=== PATIENT | male | born 1985 | race Caucasian/White ===

== ENCOUNTER 2016-10-05 10:50 | Emergency (ER) | payer BC ==
[2016-10-05] MEDS ORDERED: methylPREDNISolone SOD SUCC* 40 MG/ML VIAL IV ONE (11:24)
[2016-10-05] MEDS ORDERED: Aspirin Low Dose CHEW TAB* 81 MG PO ONE (11:24)
[2016-10-05] MEDS ORDERED: Albuterol/Ipratropium NEB.SOL* Albuterol 2.5 MG/Ipratropium 0.5 MG 3 ML INH ONE (11:24)
--- NOTE | 2016-10-05 11:29 | ED ---
Respiratory - HPI Summary HPI Summary: Patient is a 31yo M with a history of chronic asthma who presents to ED with CC of SOB, cough without production and midsternal chest pain x 1 week. Denies smoking history. Patient was seen in yesterday and given prednisone 40mg daily. He states they did not perform a chest xray. He notes to worsening SOB with associated chest tightness despite the prednisone. He endorses dyspnea on exertion, but denies orthopnea. Surgical Hx positive for cholecystectomy 3 weeks ago. He states he remained ambulatory after the surgery and had no use of a spirometer post-op. He denied SOB immediately after surgery and the days following. Denies sick contacts. Denies hx of PNA. He has not taken anything for the discomfort and has been using his albuterol inhaler more frequently, but it does not alleviate the symptoms. He is also on daily advair. Last nebulizer treatment at home was about 1 hour ago and he states he is still feeling SOB. He is concerned over the midsternal chest pain radiating to the L shoulder since yesterday. Family hx includes HTN and MN, but personal history only positive for asthma and allergies. - History of Current Complaint Chief Complaint: EDShortnessOfBreath Stated Complaint: CHEST PAIN,SHORT OF BREATH, LEFT SHOULDER PAIN, Time Seen by Provider: 10/05/16 11:06 Hx Obtained From: Patient Onset/Duration: Gradual Onset Timing: Constant Initial Severity: Moderate Current Severity: Moderate Pain Intensity: 2 Character: Cough (Nonproductive), Dyspnea at Rest Sputum Amount: None Aggravating Factor(s): URI, Allergens, Exertion, Deep Breaths Alleviating Factor(s): Neb. Bronchodilators (Frequency Of Use), Steriods, Rest Associated Signs and Symptoms: SOB, Chest Pain, Wheezing, Chest Pain with Cough , Dyspnea - Risk Factors Status Asthmaticus Risk Factors: Recent Steroids Pulmonary Embolism Risk Factors: Negative Cardiac Risk Factors: Negative Pseudomonas Risk Factors: Chronic Lung Disease Tuberculosis Risk Factors: Negative - Allergy/Home Medications Allergies/Adverse Reactions: Allergies Allergy/AdvReac Type Severity Reaction Status Date / Time No Known Allergies Allergy Verified 10/05/16 11:26 PMH/Surg Hx/FS Hx/Imm Hx Previously Healthy: Yes - Immunization History Hx Pertussis Vaccination: No Immunizations Up to Date: No Infectious Disease History: No Infectious Disease History: Denies: Traveled Outside the [place] in Last 30 Days - Social History Occupation: Employed Full-time Lives: With Family Alcohol Use: Rare Hx Substance Use: No Substance Use Type: Reports: None Hx Tobacco Use: No Smoking Status (MU): Never Smoked Tobacco Do You Chew or Dip Tobacco: No Have You Chewed or Dipped Tobacco in the LAST YEAR: No Review of Systems Constitutional: Negative Eyes: Negative Positive: Chest Pain Positive: Shortness Of Breath, Cough Gastrointestinal: Negative Positive: no symptoms reported, see HPI Positive: Arthralgia - left shoulder pain Neurological: Negative Psychological: Normal All Other Systems Reviewed And Are Negative: Yes Physical Exam Triage Information Reviewed: Yes Vital Signs On Initial Exam: Initial Vitals Temp Pulse Resp BP Pulse Ox 98.7 F 100 20 156/85 98 10/05/16 10:59 10/05/16 10:59 10/05/16 10:59 10/05/16 10:59 10/05/16 10:59 Completion Of Physical Exam Limited Due To: Dementia Appearance: Positive: Well-Appearing, Well-Nourished Skin: Positive: Warm, Skin Color Reflects Adequate Perfusion Head/Face: Positive: Normal Head/Face Inspection Eyes: Positive: EOMI, YANET, Conjunctiva Clear Neck: Positive: Supple, No Lymphadenopathy Respiratory/Lung Sounds: Positive: Rhonchi - throughout LLL and RLL base, Wheezes - throughout lung bases, Fatigue Cardiovascular: Positive: Normal, RRR Musculoskeletal: Positive: Normal, Strength/ROM Intact Neurological: Positive: Normal, Sensory/Motor Intact, Alert, Oriented to Person Place, Time Psychiatric: Positive: Normal AVPU Assessment: Alert - Cullen Coma Scale Best Eye Response: 4 - Spontaneous Best Motor Response: 6 - Obeys Commands Best Verbal Response: 5 - Oriented Coma Scale Total: 15 Diagnostics - Vital Signs Vital Signs Temp Pulse Resp BP Pulse Ox 10/05/16 11:23 103 23 95 10/05/16 11:03 98.6 F 80 16 156/85 100 10/05/16 10:59 98.7 F 100 20 156/85 98 - Laboratory Result Diagrams: 10/05/16 11:15 10/05/16 11:15 Lab Statement: Any lab studies that have been ordered have been reviewed, and results considered in the medical decision making process. Disposition - Course Course Of Treatment: Chest xray:IMPRESSION: Consolidation at the LEFT lung base is concerning for pneumonia in the. appropriate clinical context. Potential additional small region of consolidation at the. RIGHT upper lobe. Correlate with clinical assessment. Follow-up radiographs after therapy. suggested to assess for resolution. Respiratory therapy called for breathing treatment. Patient improved immediately following. Trops negative. D-Dimer negative. < 200. EKG negative for acute findings. Read as NSR. Patient recently had surgery 3 weeks ago and provider concerned for PE. D-Dimer for moderate risk rule out. Patient has chronic asthma which has worsened over the past 2 weeks. Will treat for PNA with levofloxacin d/t recent hospital stay and chronic lung disease. Added 2 days prednisone at 50mg today and tomorrow and to resume 40mg on thursday for 4 days. Nebulizer treatments ordered for patient and note for work for 3 days off given. Patient OK to discharge and will return if symptoms become worse. - Differential Dx - Cardiopulmonary Differential Diagnoses - Cardiopulmonary: Chest Wall Pain, Lower Resp Infection , Pulmonary Embolism, Other - PNA - Diagnoses Provider Diagnoses: Pneumonia Discharge - Discharge Plan Condition: Stable Disposition: HOME Prescriptions: Albuterol/Ipratropium NEB.TATIANA* [Duoneb (Albuterol 2.5 MG/Ipratropium 0.5 MG)] 1 neb INH Q4H #30 neb.soln MDD 6 Levofloxacin TAB* [Levaquin 750 MG TAB*] 750 mg PO DAILY #5 tab predniSONE TAB* [Deltasone TAB*] 50 mg PO DAILY #2 tab MDD 1 Patient Education Materials: Bacterial Pneumonia (ED) Forms: *Work Release Referrals: No Primary Care Phys,NOPCP [Primary Care Provider] - Additional Instructions: Duo-Neb as needed for shortness of breath Take 50mg prednisone x 2 days beginning on THURSDAY Take 40mg prednisone x 4 days beginning on THURSDAY Remain out of work until . Levofloxacin daily for 5 days. Recommended repeat chest xray next week after completion of antibiotics to assure pneumonia has passed. Tylenol or ibuprofen for any discomfort Moist heat to left shoulder
[2016-10-05 11:41] LABS: Hematocrit 46 % (42-52); Hemoglobin 15.3 g/dl (14.0-18.0); Mean Corpuscular HGB Conc 33 g/dl (31-36); Mean Corpuscular Hemoglobin 30 pg (27-31); Mean Corpuscular Volume 90 fL (80-94); Mean Platelet Volume 9 um3 (7.4-10.4); Red Blood Count 5.11 10^6/ul (4.0-5.4); Red Cell Distribution Width 13 % (10.5-15); White Blood Count 10.9 10^3/ul (3.5-10.8)
[2016-10-05 11:53] LABS: Albumin 4.5 g/dL (3.2-5.2); BUN/Creatinine Ratio 12.1 (8-20); Calcium 9.6 mg/dL (8.6-10.3); EGFR African American 114.9 (>60); EGFR Non-African American 89.4 (>60); Globulin 2.8 g/dL (2-4); Magnesium 1.9 mg/dL (1.9-2.7); Potassium 3.8 mmol/L (3.5-5.0); Total Bilirubin 0.4 mg/dL (0.2-1.0); Total Protein 7.3 g/dL (6.4-8.9)
--- NOTE | 2016-10-05 12:00 | RAD ---
Indication: Wheezing, coarse lung sounds. Shortness of breath, chest pain. History of asthma. Comparison: None. Technique: Upright AP 1135 hours Report: Mild prominence of interstitial markings. Mild alveolar consolidation at the LEFT lung base and at the anterior segment of the RIGHT upper lobe approximating the minor fissure. Grossly clear pleural spaces. Negative for pneumothorax. The heart, pulmonary vasculature, and mediastinal contours are unremarkable. IMPRESSION: Consolidation at the LEFT lung base is concerning for pneumonia in the appropriate clinical context. Potential additional small region of consolidation at the RIGHT upper lobe. Correlate with clinical assessment. Follow-up radiographs after therapy suggested to assess for resolution.
[2016-10-05 13:07] VITALS: BP 152/89
== END 2016-10-05 13:06 | disposition home or self-care (01) ==
LOC: ED 10:50
DX: J18.9 Pneumonia, unspecified organism (principal); R07.9 Chest pain, unspecified; R06.02 Shortness of breath; M25.512 Pain in left shoulder; R05 Cough; R06.00 Dyspnea, unspecified
CPT/HCPCS: 36415; 71010; 80053; 82550; 82553; 83605; 83735; 83874; 83880; 84484; 85025; 85379; 85610; 85730; 93005; 94640; 94760; 96374; 99282; A9270-GY; J2920

== ENCOUNTER → 2016-10-08 16:52 | Emergency (ER) | payer BC ==
[~2016-10-08 16:52] MED LIST: Albuterol/Ipratropium NEB.SOL* Albuterol 2.5 MG/Ipratropium 0.5 MG 3 ML INH ONE; Iohexol 350* (CONTRAST) 500 ML MDV IV ONE; Levofloxacin TAB* 250 MG PO ONE; NS 0.9% 1000 ML* 1,000 ML IV ONE; Nystatin SUSPENSION* 100000 UNITS/ML 5 ML UDC PO ONE; methylPREDNISolone SOD SUCC* 125 MG 2 ML VIAL IV ONE; predniSONE TAB* 50 MG PO ONE
[2016-10-08 18:10] LABS: Hematocrit 47 % (42-52); Hemoglobin 15.5 g/dl (14.0-18.0); Mean Corpuscular HGB Conc 33 g/dl (31-36); Mean Corpuscular Hemoglobin 30 pg (27-31); Mean Corpuscular Volume 90 fL (80-94); Mean Platelet Volume 9 um3 (7.4-10.4); Red Blood Count 5.18 10^6/ul (4.0-5.4); Red Cell Distribution Width 13 % (10.5-15); White Blood Count 9.1 10^3/ul (3.5-10.8)
[2016-10-08 18:29] LABS: ALT 121 U/L (7-52); Albumin 4.2 g/dL (3.2-5.2); Alkaline Phosphatase 66 U/L (34-104); BUN/Creatinine Ratio 13.9 (8-20); Blood Urea Nitrogen 14 mg/dL (6-24); CO2 Carbon Dioxide 24 mmol/L (22-32); Calcium 9.4 mg/dL (8.6-10.3); Chloride 102 mmol/L (101-111); EGFR African American 112.3 (>60); EGFR Non-African American 87.3 (>60); Glucose 163 mg/dL (70-100); Sodium 132 mmol/L (133-145); Total Protein 7.2 g/dL (6.4-8.9)
[2016-10-08 18:32] LABS: Troponin I 0.01 ng/mL (<0.04)
--- NOTE | 2016-10-08 19:32 | RAD ---
INDICATION: Shortness of breath. COMPARISON: Comparison is made with a prior chest x-ray study from October 05, 2016. TECHNIQUE: A CT angiogram of the chest was performed with intravenous following intravenous injection of 170 ml of Omnipaque 350 nonionic contrast. Contiguous axial sections were obtained from the lung apices through the lung bases. Images were reconstructed in the coronal and sagittal planes. The patient was scanned twice due to suboptimal opacification of the pulmonary arteries on the first data set. FINDINGS: The exam is slightly limited due to motion artifact. No intraluminal filling defect or pulmonary embolism is seen. The heart is within normal limits in size. No pericardial effusion is present. The thoracic aorta is normal in caliber and demonstrates homogeneous contrast opacification. No significant enlarged mediastinal or hilar lymph nodes are seen. There is mild increased soft tissue density in the anterior mediastinum most consistent with residual thymus tissue. There is a small linear infiltrate present in the right lower lobe suggestive of atelectasis and a curvilinear patchy infiltrate in the left lower lobe. There are small bilateral pleural effusions present. Images of the upper abdomen demonstrate mild hepatomegaly and hepatic steatosis. The patient is status post cholecystectomy. No significant focal osseous abnormality is seen. IMPRESSION: 1. SLIGHTLY LIMITED EXAM, NO EVIDENCE FOR PULMONARY EMBOLISM. 2. SMALL LEFT LOWER LOBE INFILTRATE, RIGHT LOWER LOBE ATELECTASIS AND SMALL BILATERAL PLEURAL EFFUSIONS. 3. HEPATOMEGALY AND HEPATIC STEATOSIS.
[2016-10-09 00:32] VITALS: BP 110/64
--- NOTE | 2016-10-09 02:23 | CONS ---
CONSULTATION REPORT: DATE OF CONSULTATION: 10/08/16 - EMERGENCY DEPT TIME OF EVALUATION: 2330 PRIMARY CARE PHYSICIAN: Lucina Wong NP CHIEF COMPLAINT: Cough and shortness of breath. HISTORY OF PRESENT ILLNESS: This is a 31-year-old male with a past medical history of asthma, who presented to the emergency room from his primary care's office for concern of not getting better from his pneumonia and asthma exacerbation. The patient states he had cholecystectomy done on 09/09/16. For the past week to week and a half, he has beginning with seasonal allergies. He has been taking Zyrtec for that and then he developed coughing and wheezing. He was seen at Urgent Care on the and then in the emergency room on the here and they started him on Levaquin and a steroid taper. It appears he only got 2 days of prednisone for the past 2 days. He has been using his albuterol nebulizer and DuoNebs and his inhaler at home. He does not have a chamber though. He called his primary because he was concerned that he was not getting worse, but he was not getting better and they recommended he go to the emergency room for further evaluation. He states he has some cough and shortness of breath on exertion. No chest pain, no shortness of breath at rest. In the emergency room, the patient had labs, imaging and vitals are unremarkable. They ambulated him and he did not become hypoxic with ambulation and was referred to the hospitalist service for evaluation for admission. In the emergency room, the patient was given a liter of normal saline, Solu-Medrol 125, Levaquin 750 mg and a DuoNeb and states he feels much better after the DuoNeb. PAST MEDICAL HISTORY: 1. Asthma. 2. Allergies. 3. Recent cholecystectomy, done on 09/09/16. MEDICATIONS: 1. Advair, unclear of the dose. 2. Albuterol nebulizers and albuterol inhaler, as mentioned no spacer with it and DuoNeb nebulizers as well. 3. Zyrtec 10 mg daily. 4. Bentyl 10 mg twice a day. 5. Omeprazole 20 mg daily. 6. Adderall XR 10 mg daily. 7. Flonase 1 spray each naris daily. 8. Levaquin 750 mg daily. 9. Just finished 2 days of prednisone. ALLERGIES: No known drug allergies. FAMILY HISTORY: His father has asthma. SOCIAL HISTORY: The patient lives at home with his . No tobacco or illicit drug use. Occasional alcohol use. He works as a motorboat mechanic inboard/outboard in a garage. Code status is full code. REVIEW OF SYSTEMS: As mentioned in the HPI. PHYSICAL EXAM: Vitals: Temp 99.9, pulse rate 96, respiratory rate 16, oxygen saturation 97% on room air, blood pressure 137/75. General: No acute distress , resting comfortably with his at the bedside. HEENT: Neck supple. No lymphadenopathy. Pupils equal and reactive. Anicteric. Head normocephalic. Oropharynx: Mucous membranes moist. No erythema or exudate. Cardiac: Regular rate and rhythm. Soft systolic murmur heard. Respiratory: Rhonchorous breath sounds bilaterally with expiratory wheezing. No increased work of breathing. No tachypnea. Abdomen: Soft, nontender, nondistended. Extremities: No clubbing, cyanosis or edema. Neurological: Alert and oriented x3. No focal neurologic deficits. DIAGNOSTIC STUDIES/LAB DATA: Laboratory Data: White count 9.1, hemoglobin 15.5 , hematocrit 47, platelets 249. INR is 0.84. Sodium 132, chloride 102, bicarb 24, BUN 14, creatinine 1.01, glucose 163, lactic acid 2.3. Radiographic Data: Chest CTA, slightly limited exam. No evidence for pulmonary embolism. Small left lower lobe infiltrate, right lower lobe atelectasis and small bilateral pleural effusions. hepatic steatosis. EKG shows normal sinus rhythm. ASSESSMENT: This is a 31-year-old male with past medical history of asthma, who presented to the emergency room from his primary care's office for persistent symptoms of his asthma exacerbation. Asthma exacerbation with community-acquired pneumonia. Assessment: The patient has been on 2 days of steroids and a 5-day course for Levaquin. He does feel better clinically. He does have rhonchi and wheezing on exam, but his vitals remained normal and he ambulated without any change in his oxygen saturation with a slight increase in his heart rate. His labs are unremarkable as the imaging showing an infiltrate with some atelectasis. I discussed continuing his albuterol nebulizer and using the inhaler with the chamber, which will be provided to him and to continue doing deep breathing, that he needs a longer prednisone taper rather than just 2 days and to do 7 days of Levaquin for a full course of pneumonia and to follow up with his primary care physician. We also recommended a course of nystatin for his oral thrush and to rinse out his mouth after his Advair treatment. The patient feels reassured as mentioned. Clinically, he states he has not been getting worse, just he feels he has plateaued. Recommend that he may have a longer recovery in the setting of a recent cholecystectomy with deconditioning. The patient is agreeable to this. I made my recommendations to Dr. Ford, who is also agreeable to this as well. The patient to return if his shortness of breath gets worse or any chest pain. PATIENT TIME: Greater than 90 minutes were spent doing the consultation, more than half the time spent in direct patient contact. CC: Lucina Wong NP* [id number]/CPS #: [id number] GABI
--- NOTE | 2016-10-09 11:00 | ED ---
Randolph Olivas Erika, scribed for Francois Ford MD on 10/08/16 at 1901 . Respiratory - HPI Summary HPI Summary: Patient is a 31-year-old male presenting to the ED with a CC of SOB. Patient reports that for the past week, he has had chest pain described as like someone was sitting on his chest. He states chest pain is diffuse, and is aggravated by breathing. He also reports cough and SOB, which is aggravated by exertion. Patient states SOB is not alleviated by rest. He states on 10/04/2016, he went to [facility] where he had no tests done, and was prescribed prednisone - pt is still taking the prednisone. He states on 10/05, he came to the ED, and was diagnosed with pneumonia after EKG, CXR, and blood work, and was started on Levaquin. Symptoms have not improved since discharge, so patient followed up with his PCP today, who recommended he come to the ED. Pt denies pedal edema. He states he has been using duoneb treatments q4h since he was diagnosed with pneumonia, but has not had one today since 12:00. Patient also notes he had a cholecystectomy 4 weeks ago. - History of Current Complaint Chief Complaint: EDShortnessOfBreath Stated Complaint: DX PNEUMONIA-SENT BY PCP Time Seen by Provider: 10/08/16 17:25 Hx Obtained From: Patient Onset/Duration: Gradual Onset, Lasting Days, Still Present Timing: Constant Initial Severity: Mild Current Severity: Moderate Pain Intensity: 6 Aggravating Factor(s): Exertion, Deep Breaths Alleviating Factor(s): Neb. Bronchodilators (Frequency Of Use) - q4h Associated Signs and Symptoms: SOB, Chest Pain - Allergy/Home Medications Allergies/Adverse Reactions: Allergies Allergy/AdvReac Type Severity Reaction Status Date / Time No Known Allergies Allergy Verified 10/05/16 11:26 Home Medications: Home Medications Amphetamine/Dextroamph ER(NF) [Adderal XR (NF)] 10 mg PO DAILY 10/08/16 [ History Confirmed 10/08/16] Cetirizine* [ZyrTEC 10 MG TAB*] 10 mg PO DAILY 10/08/16 [History Confirmed 10/08] Dicyclomine CAP* [Bentyl CAP*] 10 mg PO BID 10/08/16 [History Confirmed 10/08/16 ] Fluticasone NASAL SPRAY 50MCG* [Flonase NASAL SPRAY 50MCG*] 1 spray BOTH NARES DAILY 10/08/16 [History Confirmed 10/08/16] Omeprazole CAP* [Prilosec CAP* 20 MG] 20 mg PO DAILY 10/08/16 [History Confirmed 10/08/16] PMH/Surg Hx/FS Hx/Imm Hx Respiratory History: Reports: Hx Asthma, Hx Pneumonia Infectious Disease History: Denies: Traveled Outside the [place] in Last 30 Days - Family History Known Family History: Positive: Cardiac Disease, Hypertension - Social History Alcohol Use: Rare Hx Substance Use: No Substance Use Type: Reports: None Hx Tobacco Use: No Smoking Status (MU): Never Smoked Tobacco Review of Systems Positive: Chest Pain Positive: Shortness Of Breath, Cough Negative: Edema All Other Systems Reviewed And Are Negative: Yes Physical Exam Triage Information Reviewed: Yes Vital Signs On Initial Exam: Initial Vitals Temp Pulse Resp BP Pulse Ox 97.7 F 102 20 178/93 98 10/08/16 16:54 10/08/16 16:54 10/08/16 16:54 10/08/16 16:54 10/08/16 16:54 Vital Signs Reviewed: Yes Appearance: Positive: Well-Appearing, No Pain Distress Skin: Positive: Warm, Skin Color Reflects Adequate Perfusion, Dry Head/Face: Positive: Normal Head/Face Inspection Eyes: Positive: Normal ENT: Positive: Normal ENT inspection Neck: Positive: Supple, Nontender Respiratory/Lung Sounds: Positive: Breath Sounds Present, Wheezes - Expiratory Cardiovascular: Positive: Tachycardia - at 102 bpm on triage Abdomen Description: Positive: Nontender, Soft Bowel Sounds: Positive: Present Musculoskeletal: Positive: Normal Neurological: Positive: Normal Psychiatric: Positive: Affect/Mood Appropriate Diagnostics - Vital Signs Vital Signs Temp Pulse Resp BP Pulse Ox 10/08/16 16:54 97.7 F 102 20 178/93 98 - Laboratory Lab Results: Lab Results 10/08/16 10/08/16 10/08/16 Range/Units 17:50 17:50 17:50 WBC 9.1 (3.5-10.8) 10^3/ul RBC 5.18 (4.0-5.4) 10^6/ul Hgb 15.5 (14.0-18.0) g/dl Hct 47 (42-52) % MCV 90 (80-94) fL MCH 30 (27-31) pg MCHC 33 (31-36) g/dl RDW 13 (10.5-15) % Plt Count 249 (150-450) 10^3/ul MPV 9 (7.4-10.4) um3 Neut % (Auto) 79.8 (38-83) % Lymph % (Auto) 16.1 L (25-47) % [place] % (Auto) 3.7 (1-9) % Eos % (Auto) 0.1 (0-6) % Baso % (Auto) 0.3 (0-2) % Absolute Neuts (auto) 7.2 (1.5-7.7) 10^3/ul Absolute Lymphs (auto) 1.5 (1.0-4.8) 10^3/ul Absolute Monos (auto) 0.3 (0-0.8) 10^3/ul Absolute Eos (auto) 0 (0-0.6) 10^3/ul Absolute Basos (auto) 0 (0-0.2) 10^3/ul Absolute Nucleated RBC 0.01 10^3/ul Nucleated RBC % 0.1 INR (Anticoag Therapy) 0.84 L (0.89-1.11) Sodium 132 L (133-145) mmol/L Potassium TNP Chloride 102 (101-111) mmol/L Carbon Dioxide 24 (22-32) mmol/L Anion Gap TNP BUN 14 (6-24) mg/dL Creatinine 1.01 (0.67-1.17) mg/dL Est GFR ( Amer) 112.3 (>60) Est GFR (Non-Af Amer) 87.3 (>60) BUN/Creatinine Ratio 13.9 (8-20) Glucose 163 H (70-100) mg/dL Lactic Acid (0.5-2.0) mmol/L Calcium 9.4 (8.6-10.3) mg/dL Total Bilirubin 0.30 (0.2-1.0) mg/dL AST TNP ALT 121 H (7-52) U/L Alkaline Phosphatase 66 (34-104) U/L Troponin I 0.01 (<0.04) ng/mL Total Protein 7.2 (6.4-8.9) g/dL Albumin 4.2 (3.2-5.2) g/dL Globulin 3.0 (2-4) g/dL Albumin/Globulin Ratio 1.4 (1-3) 10/08/16 Range/Units 17:50 WBC (3.5-10.8) 10^3/ul RBC (4.0-5.4) 10^6/ul Hgb (14.0-18.0) g/dl Hct (42-52) % MCV (80-94) fL MCH (27-31) pg MCHC (31-36) g/dl RDW (10.5-15) % Plt Count (150-450) 10^3/ul MPV (7.4-10.4) um3 Neut % (Auto) (38-83) % Lymph % (Auto) (25-47) % [place] % (Auto) (1-9) % Eos % (Auto) (0-6) % Baso % (Auto) (0-2) % Absolute Neuts (auto) (1.5-7.7) 10^3/ul Absolute Lymphs (auto) (1.0-4.8) 10^3/ul Absolute Monos (auto) (0-0.8) 10^3/ul Absolute Eos (auto) (0-0.6) 10^3/ul Absolute Basos (auto) (0-0.2) 10^3/ul Absolute Nucleated RBC 10^3/ul Nucleated RBC % INR (Anticoag Therapy) (0.89-1.11) Sodium (133-145) mmol/L Potassium Chloride (101-111) mmol/L Carbon Dioxide (22-32) mmol/L Anion Gap BUN (6-24) mg/dL Creatinine (0.67-1.17) mg/dL Est GFR ( Amer) (>60) Est GFR (Non-Af Amer) (>60) BUN/Creatinine Ratio (8-20) Glucose (70-100) mg/dL Lactic Acid 2.3 H* (0.5-2.0) mmol/L Calcium (8.6-10.3) mg/dL Total Bilirubin (0.2-1.0) mg/dL AST ALT (7-52) U/L Alkaline Phosphatase (34-104) U/L Troponin I (<0.04) ng/mL Total Protein (6.4-8.9) g/dL Albumin (3.2-5.2) g/dL Globulin (2-4) g/dL Albumin/Globulin Ratio (1-3) Result Diagrams: 10/08/16 17:50 10/08/16 17:50 Lab Statement: Any lab studies that have been ordered have been reviewed, and results considered in the medical decision making process. - CT CTA Chest CT Interpretation Completed By: Radiologist - IMPRESSION: 1. SLIGHTLY LIMITED EXAM, NO EVIDENCE FOR PULMONARY EMBOLISM. 2. SMALL LEFT LOWER LOBE INFILTRATE, RIGHT LOWER LOBE ATELECTASIS AND SMALL BILATERAL PLEURAL EFFUSIONS. 3. HEPATOMEGALY AND HEPATIC STEATOSIS. - EKG 18:33 Cardiac Rate: NL - at 91 bpm EKG Rhythm: Sinus Rhythm Re-Evaluation - Re-Evaluation First Eval Re-Evaluation Time: 19:45 Change: Unchanged Comment: Patient is about to receive duoneb. Feels unchanged right now. Second Eval Re-Evaluation Time: 21:41 Change: Unchanged Comment: Patient reports he still does not feel improved. Will road test Third Eval Re-Evaluation Time: 22:10 Change: Unchanged Comment: Patient's HR increased to [address] test[address] Discussed admission vs. discharge with patient. Will discuss with hospitalist. Disposition - Course Course Of Treatment: I am concerned that Mr. Licona is failing outpatient treatment for his pneumonia and asthma and have asked the hospitalist to consult on him. Dr. Sparks consulted on him and felt that he was stable and could be D/C'd with the addition of more time taking both the antibiotic and the steroid. I think she is right and he agrees to return if worsening. - Diagnoses Provider Diagnoses: Pneumonia, Asthma exacerbation - Physician Notifications Discussed Care Of Patient With: Dr. Sparks (hospitalist) at 22:11 - will see patient. Discharge - Discharge Plan Condition: Stable Disposition: HOME Patient Education Materials: Asthma (ED), Pneumonia (ED) Referrals: Lucina Wong [Primary Care Provider] - The documentation as recorded by the Randolph gibson Erika accurately reflects the service I personally performed and the decisions made by me, Francois Ford MD.
== END | disposition home or self-care (01) ==
LOC: ED 16:52
DX: J45.901 Unspecified asthma with (acute) exacerbation (principal); J18.9 Pneumonia, unspecified organism; R07.9 Chest pain, unspecified; R06.02 Shortness of breath; Z79.899 Other long term (current) drug therapy; R16.0 Hepatomegaly, not elsewhere classified; K76.0 Fatty (change of) liver, not elsewhere classified
CPT/HCPCS: 36415; 71275; 80053; 83605; 84484; 85025; 85610; 87040; 93005; 94640; 96361; 96374; 99285; A9270-GY; J2930; J7512; Q9967

== ENCOUNTER 2017-10-05 03:15 | Emergency (ER) | payer BC ==
[2017-10-05] MEDS ORDERED: Ibuprofen TAB* 800 MG PO ONE (03:39)
[2017-10-05] MEDS ORDERED: Ibuprofen TAB* 600 MG ONE (03:40)
[2017-10-05 03:59] LABS: ABS Basophils 0 10^3/ul (0-0.2); ABS Eosinophils 0 10^3/ul (0-0.6); ABS Lymphocytes 1.4 10^3/ul (1.0-4.8); ABS Monocytes 0.7 10^3/ul (0-0.8); ABS Nucleated RBC 0 10^3/ul; Eosinophil % 0.3 % (0-6); Hematocrit 43 % (42-52); Hemoglobin 14.9 g/dl (14.0-18.0); Lymphocyte % 13.5 % (25-47); Mean Corpuscular HGB Conc 35 g/dl (31-36); Mean Corpuscular Hemoglobin 31 pg (27-31); Mean Corpuscular Volume 88 fL (80-94); Nucleated Red Blood Cells % 0; Platelet Count 211 10^3/ul (150-450); Red Blood Count 4.85 10^6/ul (4.0-5.4); Red Cell Distribution Width 13 % (10.5-15); White Blood Count 10.1 10^3/ul (3.5-10.8)
[2017-10-05 04:08] LABS: INR 0.88 (0.77-1.02)
[2017-10-05 04:17] LABS: EGFR Non-African American 81.1 (>60)
[2017-10-05 05:14] VITALS: BP 138/84
--- NOTE | 2017-10-05 05:17 | ED ---
Blaine Olivas Gabriel, scribed for Gil Zhu on 10/05/17 at 0352 . HPI Chest Pain - HPI Summary HPI Summary: This patient is a 32 year old M presenting to [facility] accompanied by his partner with a chief complaint of CP that began at 1230 tonight. The patient rates the pain 6/10 in severity. Symptoms aggravated by movement and deep breaths. Patient reports SOB, left arm pain, dizziness, and hot flashes. - History of Current Complaint Chief Complaint: EDChestPainROMI Time Seen by Provider: 10/05/17 03:24 Hx Obtained From: Patient Onset/Duration: Still Present Time of Onset: 12:30 Pain Intensity: 6 - Allergy/Home Medications Allergies/Adverse Reactions: Allergies Allergy/AdvReac Type Severity Reaction Status Date / Time No Known Allergies Allergy Verified 10/05/17 03:22 PMH/Surg Hx/FS Hx/Imm Hx Respiratory History: Reports: Hx Asthma, Hx Pneumonia - Surgical History Surgery Procedure, Year, and Place: cholecystectomy 09/2016 Infectious Disease History: No Infectious Disease History: Denies: Traveled Outside the [place] in Last 30 Days - Family History Known Family History: Positive: Cardiac Disease, Hypertension - Social History Alcohol Use: Rare Hx Substance Use: No Substance Use Type: Reports: None Hx Tobacco Use: No Smoking Status (MU): Never Smoked Tobacco Review of Systems All Other Systems Reviewed And Are Negative: Yes Physical Exam - Summary Physical Exam Summary: Appearance: Well appearing, no pain distress Skin: warm, dry, reflects adequate perfusion Head/face: normal Eyes: EOMI, YANET ENT: normal Neck: supple, non-tender Chest: TTP over left chest, reproducible CP Respiratory: CTA, breath sounds present Cardiovascular: RRR, pulses symmetrical Abdomen: non-tender, soft Bowel: present Musculoskeletal: normal, strength/ROM intact Neuro: normal, sensory motor intact, A&Ox3 Triage Information Reviewed: Yes Vital Signs On Initial Exam: Initial Vitals Temp Pulse Resp BP Pulse Ox 96.9 F 106 18 161/92 96 10/05/17 03:20 10/05/17 03:20 10/05/17 03:20 10/05/17 03:20 10/05/17 03:20 Vital Signs Reviewed: Yes Diagnostics - Vital Signs Vital Signs Temp Pulse Resp BP Pulse Ox 10/05/17 03:20 96.9 F 106 18 161/92 96 - Laboratory Lab Results: Lab Results 10/05/17 10/05/17 10/05/17 Range/Units 03:45 03:45 03:45 WBC 10.1 (3.5-10.8) 10^3/ul RBC 4.85 (4.0-5.4) 10^6/ul Hgb 14.9 (14.0-18.0) g/dl Hct 43 (42-52) % MCV 88 (80-94) fL MCH 31 (27-31) pg MCHC 35 (31-36) g/dl RDW 13 (10.5-15) % Plt Count 211 (150-450) 10^3/ul MPV 9.0 (7.4-10.4) um3 Neut % (Auto) 78.6 (38-83) % Lymph % (Auto) 13.5 L (25-47) % Archuleta % (Auto) 7.3 H (0-7) % Eos % (Auto) 0.3 (0-6) % Baso % (Auto) 0.3 (0-2) % Absolute Neuts (auto) 8.0 H (1.5-7.7) 10^3/ul Absolute Lymphs (auto) 1.4 (1.0-4.8) 10^3/ul Absolute Monos (auto) 0.7 (0-0.8) 10^3/ul Absolute Eos (auto) 0 (0-0.6) 10^3/ul Absolute Basos (auto) 0 (0-0.2) 10^3/ul Absolute Nucleated RBC 0 10^3/ul Nucleated RBC % 0 INR (Anticoag Therapy) 0.88 (0.77-1.02) APTT 31.1 (26.0-36.3) seconds D-Dimer, Quantitative < 200 (Less Than 230) ng/mL Sodium (139-145) mmol/L Potassium (3.5-5.0) mmol/L Chloride (101-111) mmol/L Carbon Dioxide (22-32) mmol/L Anion Gap (2-11) mmol/L BUN (6-24) mg/dL Creatinine (0.67-1.17) mg/dL Est GFR ( Amer) (>60) Est GFR (Non-Af Amer) (>60) BUN/Creatinine Ratio (8-20) Glucose (70-100) mg/dL Lactic Acid (0.5-2.0) mmol/L Calcium (8.6-10.3) mg/dL Total Bilirubin (0.2-1.0) mg/dL AST (13-39) U/L ALT (7-52) U/L Alkaline Phosphatase (34-104) U/L Troponin I (<0.04) ng/mL B-Natriuretic Peptide 9 ( - 100) pg/mL Total Protein (6.4-8.9) g/dL Albumin (3.2-5.2) g/dL Globulin (2-4) g/dL Albumin/Globulin Ratio (1-3) 10/05/17 10/05/17 Range/Units 03:45 03:45 WBC (3.5-10.8) 10^3/ul RBC (4.0-5.4) 10^6/ul Hgb (14.0-18.0) g/dl Hct (42-52) % MCV (80-94) fL MCH (27-31) pg MCHC (31-36) g/dl RDW (10.5-15) % Plt Count (150-450) 10^3/ul MPV (7.4-10.4) um3 Neut % (Auto) (38-83) % Lymph % (Auto) (25-47) % Archuleta % (Auto) (0-7) % Eos % (Auto) (0-6) % Baso % (Auto) (0-2) % Absolute Neuts (auto) (1.5-7.7) 10^3/ul Absolute Lymphs (auto) (1.0-4.8) 10^3/ul Absolute Monos (auto) (0-0.8) 10^3/ul Absolute Eos (auto) (0-0.6) 10^3/ul Absolute Basos (auto) (0-0.2) 10^3/ul Absolute Nucleated RBC 10^3/ul Nucleated RBC % INR (Anticoag Therapy) (0.77-1.02) APTT (26.0-36.3) seconds D-Dimer, Quantitative (Less Than 230) ng/mL Sodium 139 (139-145) mmol/L Potassium 4.0 (3.5-5.0) mmol/L Chloride 106 (101-111) mmol/L Carbon Dioxide 26 (22-32) mmol/L Anion Gap 7 (2-11) mmol/L BUN 9 (6-24) mg/dL Creatinine 1.07 (0.67-1.17) mg/dL Est GFR ( Amer) 104.4 (>60) Est GFR (Non-Af Amer) 81.1 (>60) BUN/Creatinine Ratio 8.4 (8-20) Glucose 126 H (70-100) mg/dL Lactic Acid 1.4 (0.5-2.0) mmol/L Calcium 9.1 (8.6-10.3) mg/dL Total Bilirubin 0.40 (0.2-1.0) mg/dL AST 30 (13-39) U/L ALT 68 H (7-52) U/L Alkaline Phosphatase 73 (34-104) U/L Troponin I 0.00 (<0.04) ng/mL B-Natriuretic Peptide ( - 100) pg/mL Total Protein 6.8 (6.4-8.9) g/dL Albumin 4.3 (3.2-5.2) g/dL Globulin 2.5 (2-4) g/dL Albumin/Globulin Ratio 1.7 (1-3) Result Diagrams: 10/05/17 03:45 10/05/17 03:45 Lab Statement: Any lab studies that have been ordered have been reviewed, and results considered in the medical decision making process. - Radiology CXR Radiology Interpretation Completed By: ED Physician - no acute process - EKG 03:12 Cardiac Rate: Tachycardia EKG Rhythm: Sinus Tachycardia - at 102 BPM EKG Interpretation: no acute changes Chest Pain Course/Dx - Course Assessment/Plan: This patient is a 32 year old M presenting to [facility] accompanied by his partner with a chief complaint of CP that began at 1230 tonight. The patient rates the pain 6/10 in severity. Symptoms aggravated by movement and deep breaths. Patient reports SOB, left arm pain, dizziness, and hot flashes. An EKG reveals NSR. CXR reveals, no acute process. Blood work obtained. In the ED course the patient was given motrin. Dx musculoskeletal chest pain. Patient will be discharged and follow up from PCP. The patient is agreeable with this plan. - Chest Pain Differential Diagnosis/HQI/PQRI: Angina, Chest Wall, Lower Respiratory Infection - Diagnoses Provider Diagnoses: Musculoskeletal chest pain Discharge - Sign-Out/Discharge Documenting (check all that apply): Discharge/Admit/Transfer - Discharge Plan Condition: Stable Disposition: HOME Prescriptions: Ibuprofen TAB* [Motrin TAB* 600 MG] 600 mg PO Q8H PRN #15 tab MDD 3 PRN Reason: Pain Patient Education Materials: Chest Wall Pain (ED) Referrals: Lucina Wong [Primary Care Provider] - 2 Days Additional Instructions: RETURN TO THE EMERGENCY DEPARTMENT FOR CHANGING OR WORSENING SYMPTOMS - Billing Disposition and Condition Condition: STABLE Disposition: HOME The documentation as recorded by the Blaine gibson Gabriel accurately reflects the service I personally performed and the decisions made by Audra hodges Emmanuel.
--- NOTE | 2017-10-05 08:21 | RAD ---
Indication: Chest pain. Comparison: October 08, 2016 Technique: Upright AP 0409 hours Report: Mild airspace consolidation at the LEFT lung base. Grossly clear pleural spaces. Negative for pneumothorax. The heart, pulmonary vasculature, and mediastinal contours are unremarkable. IMPRESSION: Alveolar consolidation at the LEFT lung base may represent atelectasis or pneumonia. Correlate with clinical assessment. Negative for pulmonary edema.
== END 2017-10-05 05:17 | disposition home or self-care (01) ==
LOC: ED 03:15
DX: R07.89 Other chest pain (principal); J45.909 Unspecified asthma, uncomplicated
CPT/HCPCS: 36415; 71045; 80053; 83605; 83880; 84484; 85025; 85379; 85610; 85730; 93005; 99283; A9270-GY